=== PATIENT | male | born 1975 | race Caucasian/White ===

== ENCOUNTER 2025-10-20 17:48 | Emergency (ER) | payer OTHER ==
[2025-10-20] MEDS: Fluorescein 1 MG Ophth Strip EYERT ONE (18:41)
== END 2025-10-20 18:50 | disposition home or self-care (01) ==
LOC: JD.ED 17:48
DX: S05.01XA Injury of conjunctiva and corneal abrasion without foreign body, right eye, initial encounter (principal); Z79.899 Other long term (current) drug therapy; X58.XXXA Exposure to other specified factors, initial encounter; Y99.0 Civilian activity done for income or pay
CPT/HCPCS: 99283; A9270; 99284; J3490